=== PATIENT | male | born 1945 | race Caucasian/White ===

== ENCOUNTER → 2019-09-16 | Outpatient (CLI) | payer MEDICARE ==
[~2019-09-16] MED LIST: ASPI-171 PO; ATOR40TA59 PO; NIFE90TA PO; PANT40TA3 PO
--- NOTE | 2019-09-16 17:01 | RAD ---
EXAM: 3 Views Left Shoulder DATE: 09/16/2019 12:00 AM INDICATION: Left shoulder pain COMPARISON: No Prior FINDINGS: There is no evidence for acute fracture or dislocation. AC joint is congruent. Humeral head is not high riding. IMPRESSION: 1. No acute fracture or dislocation. Electronically signed by: Markus Ovalle MD (09/16/2019 4:58 PM) [id number]
--- NOTE | 2019-09-16 17:49 | RAD ---
CERVICAL SPINE 5V History: Cervical spine pain into the left shoulder Comparison: None. Findings: 7 views of the cervical spine are submitted. There is fairly advanced C6-7 degenerative disc disease. Cervical vertebral body stature and AP alignment are maintained. Uncovertebral degenerative change likely contributes to a degree of right C3-4 neural foramina compromise. There is multilevel cervical facet degenerative change. There is mild inferior levoscoliosis of the cervical spine. There is adequate alignment of the lateral masses of C1 relative to C2. Occipital condylar-C1 attenuation is grossly preserved although partially obscured by overlying bone and teeth. Tip of the dens is also obscured by overlying bone and teeth. Impression: 1. There is fairly advanced C6-7 degenerative disc disease. There is multilevel cervical facet into change. There is cervical levoscoliosis. Electronically signed by: Omar Freeman MD (09/16/2019 5:46 PM) [id number]
== END | disposition home or self-care (01) ==
LOC: PMG 10:44
PROVIDERS: ATTEND Physician Assistant
DX: M50.123 Cervical disc disorder at C6-C7 level with radiculopathy (principal); M25.512 Pain in left shoulder
CPT/HCPCS: 72050; 73030

== ENCOUNTER → 2020-05-13 | Outpatient (CLI) | payer MEDICARE ==
--- NOTE | 2020-05-13 16:41 | RAD ---
EXAM: CT Abdomen and Pelvis without IV contrast CLINICAL HISTORY: GENERALIZED ABD PAIN,x 3 WEEKS, SWELLING AND PAIN ON LEFT MID ABD COMPARISON: 08/10/2016 TECHNIQUE: Helical CT of the abdomen and pelvis without intravenous contrast. Axial, coronal and sagittal reformatted images were generated. PQRS compliance statement - One or more of the following individualized dose reduction techniques were utilized for this study: 1. Automated exposure control 2. Adjustment of the mA and/or kV according to patient size 3. Use of iterative reconstruction technique FINDINGS: Lack of intravenous contrast limits evaluation of solid organs, vasculature, and lymph nodes. Lower chest: Linear opacities in the left greater than right lower lobes likely scarring/atelectasis. Bronchiectasis is also seen in the lower lobes. Abdomen and Pelvis: No focal liver lesion. Gallbladder is normal. Radiopaque density in the antrum/pyloric region of the stomach likely recently ingested pill. Spleen is normal in appearance. Adrenal glands are unremarkable. Bilateral renal cysts are seen. No hydronephrosis. No hydroureter. No renal tract calculus. Prostate is markedly enlarged measuring 6.5 cm in transverse dimension with marked deformity of the dependent bladder. Moderate colonic stool content is seen. Colonic diverticula are seen particularly in the sigmoid colon. Infiltration is seen about the descending colon, and the region of a diverticulum. No abdominal or pelvic ascites. No abdominal or pelvic lymphadenopathy. Aortobiiliac calcifications are seen. Bones: Degenerative changes of the spine are seen. No aggressive osseous lesion is noted. Decreased bone mineral density. IMPRESSION: 1. Infiltration about the descending colon in the region of colonic diverticula, likely colonic diverticulosis without evidence for free or loculated collection. However, infectious or inflammatory colitis may result in a similar appearance. If colonoscopy has not recently been performed, recommend colonoscopy to exclude underlying mass following resolution of the acute process. 2. Prostate is markedly enlarged resulting in deformity of the bladder Electronically signed by: Markus Ovalle MD (05/13/2020 4:39 PM) [id number]
== END ==
LOC: CT 15:22
PROVIDERS: ATTEND Family Medicine
DX: K57.30 Diverticulosis of large intestine without perforation or abscess without bleeding (principal); N32.89 Other specified disorders of bladder; N40.0 Benign prostatic hyperplasia without lower urinary tract symptoms
CPT/HCPCS: 74176